=== PATIENT | female | born 1980 | race Two or more races ===

== ENCOUNTER 2018-06-30 05:37 | Inpatient (IN) | payer MEDICAID ==
[~2018-06-30] VITALS: Ht 162.6 cm; Wt 80.0 kg
[2018-06-30] MEDS ORDERED: OXYTOCIN 30U/ 0.9% NaCL 500ML 500 ML ONE (05:42)
[2018-06-30] MEDS ORDERED: SODIUM CITRATE/CITRIC ACID 15 ML UDC ONE ×2 (05:42→07:06)
[2018-06-30] MEDS ORDERED: METOCLOPRAMIDE 5 MG/ML, 2ML ONE ×2 (05:42)
[2018-06-30] MEDS ORDERED: NEWBORN KIT ONE (05:42)
[2018-06-30] MEDS ORDERED: LACTATED RINGERS 1,000 ML IVBOLUS ONE (06:00)
[2018-06-30] MEDS ORDERED: METOCLOPRAMIDE 5 MG/ML, 2ML IV ONE (06:00)
[2018-06-30] MEDS ORDERED: SODIUM CITRATE/CITRIC ACID 15 ML UDC PO ONE (06:00)
[2018-06-30 06:19] LABS: BASOPHILS # (AUTO) 0.03 x10^3/uL (0-0.1); BASOPHILS % (AUTO) 0 % (0-1); EOSINOPHILS # (AUTO) 0.14 x10^3/uL (0-0.4); EOSINOPHILS % (AUTO) 1 % (1-7); LYMPHOCYTES # (AUTO) 2.22 x10^3/uL (1-3.4); LYMPHOCYTES % (AUTO) 17 % (22-44); MD NO; MEAN CORPUSCULAR HEMOGLOBIN 23.6 pg (27.0-34.8); MEAN CORPUSCULAR HGB CONC 32.7 g/dL (32.4-35.8); MEAN PLATELET VOLUME 10.2 fL (7.4-10.4); MONOCYTES # (AUTO) 0.75 x10^3/uL (0.2-0.8); MONOCYTES % (AUTO) 6 % (2-9); NEUTROPHILS # (AUTO) 10.05 x10^3/uL (1.8-6.8); NEUTROPHILS % (AUTO) 76 % (42-75); PLATELET COUNT 308 x10^3/uL (130-400); RED CELL DISTRIBUTION WIDTH 15.2 % (9.6-15.2)
[2018-06-30] MEDS ORDERED: PREN-59 PO (07:04)
[2018-06-30] MEDS ORDERED: ASPI-496 PO (07:04)
[2018-06-30] MEDS ORDERED: IRON1TAB60 PO (07:05)
[2018-06-30] MEDS ORDERED: MISOPROSTOL 200 MCG TABLET ONE (07:06)
[2018-06-30] MEDS ORDERED: DEXAMETHASONE 4 MG/ML, 1ML ONE (07:13)
[2018-06-30] MEDS ORDERED: ONDANSETRON 2MG/ML, 2ML ONE (07:13)
[2018-06-30] MEDS ORDERED: KETOROLAC 30 MG/1 ML ONE (07:13)
[2018-06-30] MEDS ORDERED: OXYTOCIN 10 UNITS/ML, 1ML ONE (07:13)
[2018-06-30] MEDS ORDERED: CEFAZOLIN 1,000 MG ONE (07:13)
[2018-06-30] MEDS ORDERED: PHENYLEPHRINE 10 MG/ML ONE (07:13)
[2018-06-30] MEDS ORDERED: EPHEDRINE 50 MG/ML, 1ML ONE (07:13)
[2018-06-30] MEDS ORDERED: FENTANYL PF 100 MCG/2ML ONE ×2 (07:13→10:25)
[2018-06-30] MEDS: LACTATED RINGERS 1,000 ML IV SCH ×5 (07:21→23:21)
[2018-06-30] MEDS ORDERED: PROMETHAZINE 25 MG/ML, 1ML IV PRN (07:30)
[2018-06-30] MEDS ORDERED: ONDANSETRON 2MG/ML, 2ML IV PRN (07:30)
[2018-06-30] MEDS ORDERED: MIDAZOLAM 1 MG/ML, 2ML IV PRN (07:30)
[2018-06-30] MEDS ORDERED: EPHEDRINE 50 MG/ML, 1ML IVPush PRN (07:30)
[2018-06-30] MEDS ORDERED: MEPERIDINE/PF 25MG/0.5ML IVPush PRN (07:30)
[2018-06-30] MEDS ORDERED: ALBUTEROL SULFATE 2.5 MG/3 ML NPPB PRN (07:30)
[2018-06-30] MEDS ORDERED: MISOPROSTOL 200 MCG TABLET PR PRN (07:30)
[2018-06-30] MEDS ORDERED: METHYLERGONOVINE 0.2 MG/ML IM PRN (07:30)
[2018-06-30] MEDS ORDERED: MORPHINE SULFATE 4 MG/ML, 1ML IVPush PRN (07:30)
[2018-06-30] MEDS ORDERED: ACETAMINOPHEN 325 MG TABLET PO PRN (07:30)
[2018-06-30] MEDS ORDERED: OXYcodone 5 MG/5 ML ORAL.SOL UDC PO PRN (07:30)
[2018-06-30] MEDS ORDERED: FENTANYL PF 100 MCG/2ML IV PRN (07:30)
[2018-06-30] MEDS ORDERED: HYDROmorphone 2 MG/ML, 1ML IVPush PRN (07:30)
[2018-06-30] MEDS ORDERED: hydrALAzine 20 MG/ML, 1ML IV PRN (07:30)
[2018-06-30] MEDS ORDERED: ONDANSETRON 2MG/ML, 2ML IVPush PRN (07:30)
[2018-06-30] MEDS ORDERED: morphine SULFATE 10 MG/ML, 1ML IVPush PRN (07:30)
[2018-06-30] MEDS ORDERED: HYDROmorphone 2 MG/ML, 1ML ONE (08:06)
[2018-06-30] MEDS: OXYTOCIN 30U/ 0.9% NaCL 500ML 500 ML IV SCH ×2 (09:39→17:44)
[2018-06-30] MEDS ORDERED: OXYcodone 5 MG/5 ML ORAL.SOL UDC ONE (09:52)
[2018-06-30 11:00] VITALS: BP 116/58
[2018-06-30] MEDS: PRENATAL VIT/IRON/FA 1 EACH TABLET PO SCH (12:12)
[2018-06-30 15:00] VITALS: BP 112/62
[2018-06-30 16:58] LABS: BASOPHILS # (AUTO) 0.04 x10^3/uL (0-0.1); BASOPHILS % (AUTO) 0 % (0-1); EOSINOPHILS % (AUTO) 0 % (1-7); LYMPHOCYTES # (AUTO) 1.22 x10^3/uL (1-3.4); LYMPHOCYTES % (AUTO) 7 % (22-44); MEAN CORPUSCULAR HEMOGLOBIN 22.9 pg (27.0-34.8); MEAN CORPUSCULAR HGB CONC 31.4 g/dL (32.4-35.8); MEAN CORPUSCULAR VOLUME 72.9 fL (80-100); MEAN PLATELET VOLUME 10.1 fL (7.4-10.4); MONOCYTES # (AUTO) 0.71 x10^3/uL (0.2-0.8); MONOCYTES % (AUTO) 4 % (2-9); NEUTROPHILS # (AUTO) 15.03 x10^3/uL (1.8-6.8); NEUTROPHILS % (AUTO) 88 % (42-75); PLATELET COUNT 286 x10^3/uL (130-400); RED BLOOD COUNT 4.36 x10^6/uL (3.82-5.3); RED CELL DISTRIBUTION WIDTH 15.3 % (9.6-15.2)
[2018-06-30 16:59] LABS: MD NO
[2018-06-30] MEDS: OXYcodone/APAP 5/325MG TABLET PO PRN ×2 (17:47→20:15)
[2018-06-30] MEDS: IBUPROFEN 600 MG TABLET PO PRN (17:47)
[2018-06-30 19:45] VITALS: BP 112/69
[2018-06-30] MEDS: DOCUSATE 100 MG CAPSULE PO PRN (20:15)
[2018-07-01] VITALS: BP 114/68
[2018-07-01] MEDS: IBUPROFEN 600 MG TABLET PO PRN ×4 (02:57→22:45)
[2018-07-01] MEDS: OXYcodone/APAP 5/325MG TABLET PO PRN ×5 (02:57→21:51)
[2018-07-01] MEDS: OXYTOCIN 30U/ 0.9% NaCL 500ML 500 ML IV SCH ×3 (03:21→23:21)
[2018-07-01] MEDS: LACTATED RINGERS 1,000 ML IV SCH ×6 (03:21→23:21)
[2018-07-01 04:00] VITALS: BP 105/61
[2018-07-01 08:30] VITALS: BP 103/68
[2018-07-01] MEDS: DOCUSATE 100 MG CAPSULE PO PRN ×2 (08:31→21:52)
[2018-07-01] MEDS: PRENATAL VIT/IRON/FA 1 EACH TABLET PO SCH (08:31)
[2018-07-01] MEDS ORDERED: morphine SULFATE 10 MG/ML, 1ML IVPush PRN (19:21)
[2018-07-01 20:55] VITALS: BP 97/62
[2018-07-02] MEDS: OXYcodone/APAP 5/325MG TABLET PO PRN ×5 (02:08→22:56)
[2018-07-02] MEDS: IBUPROFEN 600 MG TABLET PO PRN ×3 (04:57→20:21)
[2018-07-02 07:30] VITALS: BP 111/71
[2018-07-02] MEDS: LACTATED RINGERS 1,000 ML IV SCH ×5 (07:32→23:21)
[2018-07-02] MEDS: PRENATAL VIT/IRON/FA 1 EACH TABLET PO SCH (07:37)
[2018-07-02] MEDS: DOCUSATE 100 MG CAPSULE PO PRN ×2 (07:37→20:21)
[2018-07-02] MEDS ORDERED: ONDANSETRON ODT 4 MG PO PRN (09:00)
[2018-07-02] MEDS: OXYTOCIN 30U/ 0.9% NaCL 500ML 500 ML IV SCH ×2 (10:03→19:21)
[2018-07-02 19:54] VITALS: BP 111/73
[2018-07-03] MEDS: IBUPROFEN 600 MG TABLET PO PRN ×2 (02:44→12:36)
[2018-07-03] MEDS: LACTATED RINGERS 1,000 ML IV SCH ×2 (05:21→08:30)
[2018-07-03] MEDS: OXYTOCIN 30U/ 0.9% NaCL 500ML 500 ML IV SCH (05:21)
[2018-07-03 08:15] VITALS: BP 122/69
[2018-07-03] MEDS: FERROUS GLUCONATE 324 MG TABLET PO SCH ×2 (08:30→11:38)
[2018-07-03] MEDS: PRENATAL VIT/IRON/FA 1 EACH TABLET PO SCH (08:30)
[2018-07-03] MEDS: DOCUSATE 100 MG CAPSULE PO PRN (08:30)
[2018-07-03] MEDS: OXYcodone/APAP 5/325MG TABLET PO PRN (08:31)
[2018-07-03] MEDS ORDERED: OXYC-302 PO (14:14)
[2018-07-03] MEDS ORDERED: SENN-92 PO (14:14)
[2018-07-03] MEDS ORDERED: IBUP-1222 PO (14:14)
[2018-07-03] MEDS ORDERED: FERR325T5 PO (14:14)
[2018-07-03] MEDS ORDERED: ONDA4TAB7 PO (14:16)
== END 2018-07-03 15:37 | disposition home or self-care (01) | DRG 787 ==
LOC: LDIP 05:37 → 2NW 10:59
PROVIDERS: ADMIT Obstetrics & Gynecology; ATTEND Obstetrics & Gynecology
PROC: 10D00Z1 Extraction of Products of Conception, Low, Open Approach (ICD-10-PCS; principal; 2018-06-30)
DX: O40.3XX0 Polyhydramnios, third trimester, not applicable or unspecified (principal); D62 Acute posthemorrhagic anemia; O34.211 Maternal care for low transverse scar from previous cesarean delivery; O24.420 Gestational diabetes mellitus in childbirth, diet controlled; Z3A.39 39 weeks gestation of pregnancy; Z37.0 Single live birth; O99.03 Anemia complicating the puerperium
CPT/HCPCS: 36415; 82803; 82962; 85025; 86850; 86900; G0378; J0690; J1100; J1170; J1885; J2405; J3010; Q0162; J2370; J2590; J2765; J7120